=== PATIENT | male | born 1995 | race African-American/Black ===

== ENCOUNTER 2017-08-29 20:25 | Observation (INO) | payer OTHER ==
[~2017-08-29] VITALS: Ht 172.7 cm; Wt 85.6 kg
[2017-08-29 21:01] VITALS: PULSE 59; TEMP 98.4
[2017-08-30 00:15] VITALS: BP 100/78; PULSE 75; TEMP 98.5
[2017-08-30 04:19] VITALS: BP 118/51; PULSE 69; TEMP 97.8
[2017-08-30 08:04] LABS: BASO % 0.4 % (0.0-2.0); EOS # 0.1 (0.0-0.7); EOS % 2.4 % (0-4.0); GRAN # 2.4 (1.4-6.5); GRAN % 51.6 % (42.2-75.2); HEMOGLOBIN 15.4 g/dl (13.5-18.0); LYMPH # 1.7 (1.2-3.4); LYMPH % 36.7 % (20.0-51.0); MEAN CELL VOLUME 86 fl (80.0-100.0); MEAN CORPUSCULAR HEMOGLOBIN 30 pg (27.0-31.0); MEAN CORPUSCULAR HGB CONC 35 g/dl (33.0-37.0); MEAN PLATELET VOLUME 10.1 fl (7.4-10.4); MONO # 0.4 (0.1-0.6); MONO % 8.7 % (1.7-9.3); PLATELET COUNT 182 K/mm3 (130-400); RED BLOOD COUNT 5.12 M/mm3 (4.20-5.60); REDCELL DISTRIBUTION WIDTH-CV 11.6 % (11.5-14.5)
[2017-08-30 08:11] LABS: CALCIUM 9.3 mg/dL (8.4-10.2); CREATININE, serum 0.82 mg/dL (0.66-1.25); POTASSIUM 3.9 mmol/L (3.4-5.0)
[2017-08-30 08:12] VITALS: BP 116/52; PULSE 58; TEMP 98.5
[2017-08-30 11:43] VITALS: BP 116/52; PULSE 58; TEMP 98.5
== END 2017-08-30 19:09 | disposition home or self-care (01) ==
LOC: MEDICAL 20:25
PROVIDERS: Nurse Practitioner
DX: R55 Syncope and collapse (principal); E86.0 Dehydration; Z82.49 Family history of ischemic heart disease and other diseases of the circulatory system; Z82.3 Family history of stroke; Z83.3 Family history of diabetes mellitus
CPT/HCPCS: G0378; Q9967